=== PATIENT | male | born 1940 | race Caucasian/White ===

== ENCOUNTER → 2016-08-11 | Outpatient (CLI) | payer MEDICARE ==
--- NOTE | 2016-08-11 09:20 | RAD ---
Renal sonography Clinical indications: Mass seen on MRI. Comparison: None available at this facility. MRI is not available. Findings: The longitudinal and AP and transverse dimensions of the right kidney are 12.0 cm and 6.5 cm and 6.5 cm respectively. No hydronephrosis or renal mass or perinephric fluid collection is seen on the right side. The longitudinal and AP and transverse dimensions of the left kidney are 13.3 cm and 6.2 cm and 5.2 cm respectively. There is a sub the left kidney. The largest is located within the mid aspect measuring 1.9 cm. No hydronephrosis is seen. Urinary bladder is mildly distended. There is enlargement of the prostate gland which indents the floor of the urinary bladder. Prostate gland measures 7.0 cm x 5.5 cm x 7.2 cm (this last measurement is transverse dimension) in size which corresponds to a prostate volume 143 cc. IMPRESSION: Left renal cysts. No hydronephrosis. Enlarged prostate gland with a volume of 143 cc.
--- NOTE | 2016-08-11 13:37 | RAD ---
Radionuclide bone scan, 08/11/2016: History: Prostatic enlargement Whole body imaging was performed following IV injection of 27 mCi of technetium 99m MDP. No previous bone scan is available at this time for correlative purposes. The following findings are delineated: 1. There is a small focus of increased activity in the calvarium anterolaterally on the left. In the absence of previous calvarial surgery, this location would raise the possibility of metastatic disease. 2. Areas of increased activity at both shoulders, sternoclavicular joints, knees, wrists and feet are probably arthritic in nature. 3. There is minimally increased activity along the posterior aspect of approximately the right ninth rib. This could be traumatic or metastatic. 4. Activity of the radionuclide about the skeleton the major joints is otherwise unremarkable. IMPRESSION: 1. Small nonspecific foci of increased activity within the left side of the skull and a lower rib posteriorly on the right. 2. Scattered arthritic changes as described above.
== END | disposition home or self-care (01) ==
LOC: NM 07:50
PROVIDERS: ATTEND Family Medicine
DX: N28.1 Cyst of kidney, acquired (principal); N40.0 Benign prostatic hyperplasia without lower urinary tract symptoms
CPT/HCPCS: 76770; 78306; 96374; A9503